=== PATIENT | female | born 1985 | race Caucasian/White ===

== ENCOUNTER 2016-11-04 12:19 | Emergency (ER) | payer MEDICAID ==
[2016-11-04 12:28] VITALS: BP 153/88
[2016-11-04] MEDS ORDERED: TETRACAINE HCL 0.5% OPH SOLN 2 ML OD ONE (14:29)
--- NOTE | 2016-11-04 14:56 | ER Document Report ---
HPI - HPI Patient complains to provider of: right eye redness Onset: Yesterday Onset/Duration: Gradual Quality of pain: Burning Pain Level: 4 Context: Patient complains of right eye redness and drainage that started yesterday. Patient states she woke up today with some matting to her eye. Patient denies any change in vision. Patient does state that she wears 2 week disposable contact lenses but has not worn them in over a week. Patient does report some light sensitivity. Patient denies sleeping in her contact lenses. Associated Symptoms: Other - Right eye redness Exacerbated by: Denies Relieved by: Denies Similar symptoms previously: No Recently seen / treated by doctor: No - ROS ROS below otherwise negative: Yes Systems Reviewed and Negative: Yes All other systems reviewed and negative - EENT EENT: REPORTS: Eye problems - NEURO Neurology: DENIES: Headache - GASTROINTESTINAL Gastrointestinal: DENIES: Patient vomiting - REPRODUCTIVE Reproductive: DENIES: : - DERM Skin Color: Normal Skin Problems: None Past Medical History - General Information source: Patient - Social History Smoking Status: Never Smoker Frequency of alcohol use: None Drug Abuse: None Occupation: none Lives with: Family Family History: Reviewed & Not Pertinent - Medical History Medical History: Negative Pulmonary Medical History: Reports: Hx Asthma Denies: Hx Tuberculosis Surgical Hx: Negative - Immunizations Hx Diphtheria, Pertussis, Tetanus Vaccination: No Vertical Provider Document - CONSTITUTIONAL Agree With Documented VS: Yes Exam Limitations: No Limitations General Appearance: WD/WN - HEENT HEENT: Atraumatic, Normocephalic Notes: right eye injected, no purulent drainage. Pt with 1 mm opacificated area concerning for corneal ulcer. No corneal abrasion, dendrite, or foreign body. EOMI, PERRL - NECK Neck: Normal Inspection - RESPIRATORY Respiratory: No Respiratory Distress O2 Sat by Pulse Oximetry: 97 - MUSCULOSKELETAL/EXTREMETIES Musculoskeletal/Extremeties: MAEW - NEURO Level of Consciousness: Awake, Alert, Appropriate Motor/Sensory: No Motor Deficit - DERM Integumentary: Warm, Dry, No Rash Course - Re-evaluation Re-evalutation: 11/04/16 14:[address] Vance who agrees to see pt in office tomorrow, recommends besivance 1 gtt q2 hour while awake and erthromycin ointment at bedtime. - Vital Signs Vital signs: Temp Pulse Resp BP Pulse Ox 97.7 F 73 24 H 153/88 H 97 11/04/16 12:27 11/04/16 12:27 11/04/16 12:27 11/04/16 12:27 11/04/16 12:27 Discharge - Discharge Clinical Impression: Cornea ulcer Qualifiers: Laterality: right Qualified Code(s): H16.001 - Unspecified corneal ulcer, right eye Condition: Stable Disposition: HOME, SELF-CARE Instructions: Eyedrop Use ([facility]), Antibiotic Therapy ([facility]), Corneal Ulceration ( [facility]) Additional Instructions: Return immediately for any new or worsening symptoms Followup with your primary care provider, call tomorrow to make a followup appointment Follow up with Dr. Vance tomorrow morning at 8:30, bring your glasses with you as well as her current insurance card. Call your primary care provider today to let them know that you need emergent ophthalmology follow-up, and will need a referral to Dr. Vance's office Do not wear ear contact lenses until cleared to do so by an operations tech. Prescriptions: Erythromycin Base [Erythromycin] 1 applic OP QHS #3.5 oint..gm. Besifloxacin HCl [Besivance 0.6% Oph Susp 5 ml] 1 drop OP ASDIR PRN #1 bottle PRN Reason: Forms: Elevated Blood Pressure Referrals: HARJIT VANCE MD [ACTIVE STAFF] - Follow up tomorrow
== END 2016-11-04 14:50 | disposition home or self-care (01) ==
LOC: ER 12:19
DX: H16.001 Unspecified corneal ulcer, right eye (principal); H57.8 Other specified disorders of eye and adnexa
CPT/HCPCS: 99283

== ENCOUNTER 2017-04-23 08:17 | Emergency (ER) | payer MEDICAID ==
--- NOTE | 2017-04-23 08:44 | ER Document Report ---
ED GI/ - General Mode of Arrival: Ambulatory Information source: Patient TRAVEL OUTSIDE OF THE [place] IN LAST 30 DAYS: No - HPI Patient complains to provider of: Dysuria. No: Vaginal discharge Associated symptoms: Other - see above - General Chief Complaint: Pain With Urination Stated Complaint: URINARY SYMPTOMS Time Seen by Provider: 04/23/17 08:31 Notes: Patient is a 31 year old female who presents to the ED with complaints of dysuria, burning and frequency with urination. Patient denies any vaginal discharge. Patient states that she has had bladder infections in the past. Patients last menstrual period was 04/07/2017. (MALENA NULL) - Related Data Allergies/Adverse Reactions: No Known Allergies Allergy (Verified 04/23/17 08:20) Past Medical History - General Information source: Patient - Social History Smoking Status: Never Smoker Chew tobacco use (# tins/day): No Smoking Education Provided: No Frequency of alcohol use: None Family History: Reviewed & Not Pertinent Patient has suicidal ideation: No Patient has homicidal ideation: No Pulmonary Medical History: Reports: Hx Asthma Renal/ Medical History: Denies: Hx Peritoneal Dialysis Surgical Hx: Negative - Immunizations Hx Diphtheria, Pertussis, Tetanus Vaccination: No Review of Systems - Review of Systems Constitutional: No symptoms reported EENT: No symptoms reported Cardiovascular: No symptoms reported Respiratory: No symptoms reported Gastrointestinal: No symptoms reported Genitourinary: See HPI, Burning, Dysuria, Frequency Female Genitourinary: No symptoms reported Musculoskeletal: No symptoms reported Skin: No symptoms reported Hematologic/Lymphatic: No symptoms reported Neurological/Psychological: No symptoms reported Physical Exam - General General appearance: Appears well, Alert In distress: None - HEENT Head: Normocephalic, Atraumatic Eyes: Normal Extraocular movements intact: Yes Pupils: PERRL - Respiratory Respiratory status: No respiratory distress - Abdominal Inspection: Obese Tenderness: Tender - superpubic - Back Back: Normal - Extremities General upper extremity: Normal inspection, Normal ROM General lower extremity: Normal inspection, Normal ROM - Neurological Neuro grossly intact: Yes - Psychological Associated symptoms: Normal affect, Normal mood - Skin Skin Temperature: Warm Skin Moisture: Dry Skin Color: Normal - Vital signs Vitals: Temp Pulse Resp BP Pulse Ox 98.2 F 86 16 154/104 H 96 04/23/17 08:23 04/23/17 08:23 04/23/17 08:23 04/23/17 08:23 04/23/17 08:23 - Vital Signs Vital signs: Temp Pulse Resp BP Pulse Ox 98.2 F 86 16 154/104 H 96 04/23/17 08:23 04/23/17 08:23 04/23/17 08:23 04/23/17 08:23 04/23/17 08:23 - Laboratory Laboratory results interpreted by me: 04/23/17 09:27 Urine Protein >=500 H Urine Blood MODERATE H Ur Leukocyte Esterase LARGE H Discharge - Discharge Clinical Impression: Hemorrhagic cystitis Condition: Stable Disposition: HOME, SELF-CARE Additional Instructions: Urinary Tract Infection Your evaluation indicates that you have a urinary tract infection. This is due to germs growing in the bladder. This is a common problem. This infection usually responds quickly to antibiotics. Your antibiotic should be taken exactly as prescribed. Drink plenty of fluids -- three to four quarts a day. Occasionally, a bladder anesthetic will be prescribed to help stop the feeling of urgency until the antibiotic has a chance to clear the infection. This may cause your urine to be dark orange. Certain urine infections require a culture. If the doctor obtained a culture, the results will be back in two days. You should call to see if a change in treatment is needed. A repeat urinalysis after you finish treatment is often recommended. The physician will let you know if further testing is required. Call the doctor if you develop fever, chills, flank pain, inability to urinate, or blood in the urine. TAKE THE MEDICATIONS PRESCRIBED. DRINK PLENTY OF FLUIDS. FOLLOW UP WITH A LOCAL MEDICAL DOCTOR IF NOT IMPROVING. RETURN TO THE EMERGENCY ROOM IF ANY NEW OR WORSENING SYMPTOMS. Prescriptions: Cephalexin Monohydrate [Keflex 500 mg Capsule] 500 mg PO QID #20 capsule Phenazopyridine HCl [Pyridium 200 mg Tablet] 200 mg PO TID #10 tablet Referrals: ELIZABETH CARRION MD [Primary Care Provider] - Follow up as needed Scribe Attestation: 04/23/17 10:07 I personally performed the services described in the documentation, reviewed and edited the documentation which was dictated to the scribe in my presence, and it accurately records my words and actions. (SUSANNE MOULTON) Scribe Documentation - Scribe Written by Jan:: jan Marr, 04/23/2017, 0843 acting as scribe for :: Jennifer
[2017-04-23 09:53] LABS: APPEARANCE,URINE CLOUDY; BILIRUBIN,URINE NEGATIVE (NEGATIVE); GLUCOSE, URINE NEGATIVE (NEGATIVE); KETONES,URINE NEGATIVE (NEGATIVE); LEUKOCYTE ESTERASE,URINE LARGE (NEGATIVE); NITRITE,URINE NEGATIVE (NEGATIVE); PROTEIN,URINE >=500 mg/dL (NEGATIVE); URINE SPECIFIC GRAVITY 1.022; UROBILINOGEN,URINE NEGATIVE mg/dL (<2.0)
[2017-04-23] MEDS ORDERED: CEPHALEXIN 500 MG CAPSULE PO ONE (10:05)
[2017-04-23] MEDS ORDERED: PHENAZOPYRIDINE HCL 200 MG TABLET PO ONE (10:05)
[2017-04-23 10:26] VITALS: BP 135/70
== END 2017-04-23 10:26 | disposition home or self-care (01) ==
LOC: ER 08:17
DX: N30.91 Cystitis, unspecified with hematuria (principal); R30.0 Dysuria; R35.0 Frequency of micturition
CPT/HCPCS: 99283; 81025; 81001; J3490

== ENCOUNTER 2017-08-17 10:58 | Emergency (ER) | payer MEDICAID ==
[2017-08-17 11:10] VITALS: BP 146/86
[2017-08-17] MEDS ORDERED: IBUPROFEN 800 MG TABLET PO ONE (11:51)
[2017-08-17] MEDS ORDERED: PREDNISONE 20 MG TABLET PO ONE (11:51)
--- NOTE | 2017-08-17 11:58 | ER Document Report ---
ED General - General Chief Complaint: Arm Pain Stated Complaint: ELBOW/JAW PAIN, HAND SWELLING Time Seen by Provider: 08/17/17 11:41 TRAVEL OUTSIDE OF THE [place] IN LAST 30 DAYS: No - HPI Patient complains to provider of: Right elbow pain left hand pain left jaw pain Notes: Patient coming in for the above-stated symptoms ongoing for the past month. Patient denies any trauma. Patient denies any past medical history denies taking medication patient she has been taking Tylenol for her pain control patient states the reason for coming in today because she wanted an opinion about what could possibly be going on. Denies any fevers chills nausea vomiting - Related Data Allergies/Adverse Reactions: No Known Allergies Allergy (Verified 08/17/17 10:58) Past Medical History - Social History Smoking Status: Never Smoker Frequency of alcohol use: None Drug Abuse: None Family History: Reviewed & Not Pertinent Patient has suicidal ideation: No Patient has homicidal ideation: No Pulmonary Medical History: Reports: Hx Asthma Renal/ Medical History: Denies: Hx Peritoneal Dialysis - Immunizations Hx Diphtheria, Pertussis, Tetanus Vaccination: No Review of Systems - Review of Systems Constitutional: No symptoms reported EENT: No symptoms reported Cardiovascular: No symptoms reported Respiratory: No symptoms reported Gastrointestinal: No symptoms reported Genitourinary: No symptoms reported Female Genitourinary: No symptoms reported Musculoskeletal: Other - Right elbow pain left hand pain left jaw pain Skin: No symptoms reported Hematologic/Lymphatic: No symptoms reported Neurological/Psychological: No symptoms reported Physical Exam - Vital signs Vitals: Temp Pulse Resp BP Pulse Ox 99.1 F 73 16 146/86 H 98 08/17/17 11:10 08/17/17 11:10 08/17/17 11:10 08/17/17 11:10 08/17/17 11:10 Interpretation: Normal - General General appearance: Appears well, Alert - HEENT Head: Normocephalic, Atraumatic Eyes: Normal Conjunctiva: Normal Cornea: Normal Extraocular movements intact: Yes Eyelashes: Normal Pupils: PERRL Ears: Normal External canal: Normal Tympanic membrane: Normal Sinus: Normal Nasal: Normal Mouth/Lips: Normal Mucous membranes: Normal Pharynx: Normal Neck: Normal - Respiratory Respiratory status: No respiratory distress Chest status: Nontender Breath sounds: Normal Chest palpation: Normal - Cardiovascular Rhythm: Regular Heart sounds: Normal auscultation Murmur: No - Abdominal Inspection: Normal Distension: No distension Bowel sounds: Normal Tenderness: Nontender Organomegaly: No organomegaly - Back Back: Normal, Nontender - Extremities General upper extremity: Nontender, Normal color, Normal ROM, Normal temperature. No: Normal inspection - Small swelling of the left MCP joint of the index finger no decreased range of motion no redness no signs of infected etiology. General lower extremity: Normal inspection, Nontender, Normal color, Normal ROM , Normal temperature, Normal weight bearing. No: Roopa's sign - Neurological Neuro grossly intact: Yes Cognition: Normal Orientation: AAOx4 Stitzer Coma Scale Eye Opening: Spontaneous Stitzer Coma Scale Verbal: Oriented Stitzer Coma Scale Motor: Obeys Commands Cayla Coma Scale Total: 15 Speech: Normal Motor strength normal: LUE, RUE, LLE, RLE Sensory: Normal - Psychological Associated symptoms: Normal affect, Normal mood - Skin Skin Temperature: Warm Skin Moisture: Dry Skin Color: Normal Course - Re-evaluation Re-evalutation: 08/17/17 15:43 Patient coming in for evaluation of right elbow pain left hand pain left jaw pain. Examination shows some slight swelling of the joints no swelling of the jaw patient has full range of motion of her jaw. No signs of dental infection or signs of ear infection. Unclear etiology jaw pain possibility of underlying connective tissue issue or rheumatoid arthritis for the elbow and for the hand. Explained to patient she will need follow-up with a family care physician for further etiologies - Vital Signs Vital signs: Temp Pulse Resp BP Pulse Ox 99.1 F 73 16 146/86 H 98 08/17/17 11:10 08/17/17 11:10 08/17/17 11:10 08/17/17 11:10 08/17/17 11:10 Discharge - Discharge Clinical Impression: joint pain and swelling Disposition: HOME, SELF-CARE Instructions: Arthralgia ([facility]) Additional Instructions: Examination today is consistent with more likely underlying soft tissue disease like rheumatoid arthritis. Specific testing will need to be performed by outpatient provider. Your examination that arrives reveals no critical etiology. We will start you on steroids and anti-inflammatory medication you can continue to take you continue Tylenol for pain control. I will give her information to our social workers to assist you in follow-up. Prescriptions: Naproxen [Naprosyn 250 mg Tablet] 250 mg PO DAILY PRN #30 tablet PRN Reason: Prednisone [Deltasone] 60 mg PO DAILY #24 tablet Forms: Return to Work Referrals: [facility] [Provider Group] - Follow up as needed
== END 2017-08-17 12:00 | disposition home or self-care (01) ==
LOC: ER 10:58
DX: M25.521 Pain in right elbow (principal); M79.89 Other specified soft tissue disorders; M79.642 Pain in left hand; R68.84 Jaw pain
CPT/HCPCS: 99283; J3490; J7512

== ENCOUNTER 2017-09-09 12:37 | Emergency (ER) | payer MEDICAID ==
--- NOTE | 2017-09-09 14:02 | ER Document Report ---
HPI - HPI Patient complains to provider of: Right elbow pain and left second MCP joint pain Onset: Other - Early September Onset/Duration: Gradual Quality of pain: Throbbing Pain Level: 3 Context: 31-year-old morbidly obese female is complaining of reoccurrence of her right elbow pain causing her to not be able to extend fully and also pain in her second left MCP joint. She was seen in the emergency department in August and told that she might have arthritis and needed to follow-up. She is a patient of [facility] and is waiting for them to call her back for referral. She is here today because it resolved after her August treatment with anti-inflammatories and prednisone and is now reoccurred. No history of gout. No fever. Associated Symptoms: None Exacerbated by: Denies Relieved by: Denies Similar symptoms previously: Yes Recently seen / treated by doctor: No - ROS ROS below otherwise negative: Yes Systems Reviewed and Negative: Yes All other systems reviewed and negative - REPRODUCTIVE Reproductive: DENIES: : - MUSCULOSKELETAL Musculoskeletal: REPORTS: Extremity pain Past Medical History - General Information source: Patient - Social History Smoking Status: Never Smoker Chew tobacco use (# tins/day): No Frequency of alcohol use: None Drug Abuse: None Lives with: Family Family History: Reviewed & Not Pertinent Patient has suicidal ideation: No Patient has homicidal ideation: No Pulmonary Medical History: Reports: Hx Asthma Renal/ Medical History: Denies: Hx Peritoneal Dialysis Surgical Hx: Negative - Immunizations Hx Diphtheria, Pertussis, Tetanus Vaccination: No Vertical Provider Document - CONSTITUTIONAL Agree With Documented VS: Yes Exam Limitations: No Limitations - INFECTION CONTROL TRAVEL OUTSIDE OF THE [place] IN LAST 30 DAYS: No - HEENT HEENT: Atraumatic, Normocephalic - NECK Neck: Supple Notes: tender top of left shoulder, above the mid clavicle - RESPIRATORY Respiratory: Breath Sounds Normal, No Respiratory Distress O2 Sat by Pulse Oximetry: 100 - CARDIOVASCULAR Cardiovascular: Regular Rate, Regular Rhythm - MUSCULOSKELETAL/EXTREMETIES Musculoskeletal/Extremeties: Tender. negative: FROM Notes: warm and tender over the lef 2nd MCP join, unable to extend right elbow fully, N /V intact, 2+ radial pulse. Pt denies injury - NEURO Level of Consciousness: Awake, Alert, Appropriate Motor/Sensory: No Motor Deficit, No Sensory Deficit - DERM Integumentary: Warm, Dry Course - Re-evaluation Re-evalutation: 09/09/17 16:15 X-ray shows effusion in the right elbow, the sed rate and CRP are elevated, the rheumatoid factor is negative, the MARQUEZ is pending. CBC is normal. Copies of lab work and x-ray are given to the patient. She understands she will need to follow-up with her track watchman. Naprosyn given for pain and inflammation. 09/09/17 16:15 - Vital Signs Vital signs: Temp Pulse Resp BP Pulse Ox 97.9 F 81 20 143/90 H 100 09/09/17 12:56 09/09/17 12:56 09/09/17 12:56 09/09/17 12:56 09/09/17 12:56 - Laboratory Result Diagrams: 09/09/17 14:20 Procedures - Immobilization Right Arm Time completed: 16:25 Pre-Proc Neuro Vasc Exam: Normal Immobilizer type: Sling Performed by: PCT Post-Proc Neuro Vasc Exam: Normal Alignment checked and good: Yes Discharge - Discharge Clinical Impression: Polyarticular joint pain inflammation Condition: Good Disposition: HOME, SELF-CARE Instructions: Temporary Sling ([facility]), Arthritis ([facility]), Anti-Inflammatory Medication ([facility]) Additional Instructions: see track watchman anti inflammatory naproxen twice a day with food see [facility] for your referral to er any concerns Prescriptions: Naproxen Sodium 550 mg PO BID #30 tablet Referrals: ELIZABETH CARRION MD [Primary Care Provider] - Follow up as needed MAKAYLA ABDALLA MD [ACTIVE STAFF] - Follow up tomorrow
[2017-09-09 14:38] LABS: ABSOLUTE BASOPHILS # (AUTO) 0.1 10^3/uL (0.0-0.2); ABSOLUTE EOSINOPHILS # (AUTO) 0.4 10^3/uL (0.0-0.6); ABSOLUTE MONOCYTES (AUTO) 0.6 10^3/uL (0.1-1.4); ABSOLUTE NEUT (AUTO) 7.1 10^3/uL (1.7-8.2); BASOPHILS % (AUTO) 0.7 % (0-2); EOSINOPHILS % (AUTO) 3.7 % (0-6); HEMATOCRIT 38.5 % (36.0-47.0); HEMOGLOBIN 12.8 g/dL (12.0-15.5); LYMPHOCYTES % (AUTO) 19.6 % (13-45); MEAN CORPUSCULAR HEMOGLOBIN 27.6 pg (27.0-33.4); MEAN CORPUSCULAR HGB CONC 33.3 g/dL (32.0-36.0); MEAN CORPUSCULAR VOLUME 83 fl (80-97); MONOCYTES % (AUTO) 5.5 % (3-13); PLATELET COUNT 267 10^3/uL (150-450); RED BLOOD COUNT 4.63 10^6/uL (3.72-5.28); RED CELL DISTRIBUTION WIDTH 14.4 % (11.5-14.0); SEGMENTED NEUTROPHILS % (AUTO) 70.5 % (42-78); TOTAL CELLS COUNTED % (AUTO) 100 %; WHITE BLOOD COUNT 10.1 10^3/uL (4.0-10.5)
[2017-09-09 15:09] LABS: URIC ACID 6.2 mg/dL (2.5-6.2)
[2017-09-09 15:15] LABS: ERYTHROCYTE SEDIMENTATION RATE 40 mm/hr (0-20)
--- NOTE | 2017-09-09 15:15 | RADIOLOGY REPORT (SQ) ---
EXAM DESCRIPTION: ELBOW RIGHT OVER 2 VIEWS COMPLETED DATE/TIME: 09/09/2017 2:52 pm REASON FOR STUDY: pain with extension right elbow COMPARISON: None. NUMBER OF VIEWS: Four views. TECHNIQUE: AP, lateral, and both oblique radiographic images acquired of the right elbow. LIMITATIONS: None. FINDINGS: MINERALIZATION: Normal. BONES: No acute fracture or dislocation. No worrisome bone lesions. JOINT: Small elbow joint effusion. SOFT TISSUES: No soft tissue swelling. No foreign body. OTHER: No other significant finding. IMPRESSION: Small elbow joint effusion, best shown on lateral film. No acute fracture or malalignment TECHNICAL DOCUMENTATION: JOB ID: [id number]- All Rights Reserved
[2017-09-09 16:27] VITALS: BP 135/84
[2017-09-11 13:39] LABS: ANTICHROMATIN AB <0.2 AI (0.0-0.9); CENTROMERE B AB <0.2 AI (0.0-0.9); JO-1 ANTIBODY (ANACOMP) <0.2 AI (0.0-0.9); RNP AB <0.2 AI (0.0-0.9); SCLERODERMA-70 ANTIBODIES <0.2 AI (0.0-0.9); SJOGREN'S ANTI-SS-B AB <0.2 AI (0.0-0.9); SJOGREN'S SS-A ANTIBODY <0.2 AI (0.0-0.9); SMITH AB ANA <0.2 AI (0.0-0.9)
[2017-09-11 14:53] LABS: DNA DOUBLE STRAND ANTIBODY ANA 1 IU/mL (0-9)
== END 2017-09-09 16:25 | disposition home or self-care (01) ==
LOC: ER 12:37
DX: M25.521 Pain in right elbow (principal); E66.01 Morbid (severe) obesity due to excess calories
CPT/HCPCS: 36415; 84550; 85025; 85652; 86140; 86225; 86235; 86430; 99284

== ENCOUNTER → 2017-10-27 | Outpatient (CLI) | payer MEDICAID ==
--- NOTE | 2017-10-27 16:40 | RADIOLOGY REPORT (SQ) ---
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 TECHNIQUE: Dynamic and static guevara scale and color images acquired of the right arm venous system. S elected spectral images acquired with additional compression and augmentation maneuvers. The contrala teral subclavian vein and internal jugular vein were also imaged. Images stored on PACS. LIMITATIONS: None. FINDINGS: INTERNAL JUGULAR VEIN: Normal phasicity, compression, augmentation. No visualized echogeni c material on guevara scale. No defects on color images. Comparison opposite side normal. SUBCLAVIAN VEIN: Normal compression, augmentation. No visualized echogenic material on guevara scale. No defects on color images. AXILLARY VEIN: Normal compression, augmentation. No visualized echogenic material on guevara scale. No d efects on color images. BRACHIAL VEIN: Normal compression, augmentation. No visualized echogenic material on guevara scale. No d efects on color images. BASILIC VEIN: Normal compression, augmentation. No visualized echogenic material on guevara scale. No de fects on color images. CEPHALIC VEIN: Normal compression, augmentation. No visualized echogenic material on guevara scale. No d efects on color images. OTHER: No other significant finding. CONTRALATERAL SUBCLAVIAN VEIN AND INTERNAL JUGULAR VEIN: Normal phasicity, compression and augmentation. No visualized echogenic material on guevara scale. No de fects on color images. IMPRESSION: NO EVIDENCE DVT OR SVT IN THE RIGHT ARM. TECHNICAL DOCUMENTATION: JOB ID: [id number] [employer]- All Rights Reserved Reading location - IP/workstation name: [email or web address]
== END ==
LOC: SP 12:58
PROVIDERS: ATTEND Physician Assistant
DX: D69.2 Other nonthrombocytopenic purpura (principal)
CPT/HCPCS: 93971

== ENCOUNTER 2018-04-04 14:27 | Emergency (ER) | payer MEDICAID ==
--- NOTE | 2018-04-04 14:42 | ER Document Report ---
ED Medical Screen (RME) - General Chief Complaint: Vag Bleeding, +preg <12wks Stated Complaint: VAGINAL BLEEDING Time Seen by Provider: 04/04/18 14:38 Notes: 32-year-old female, g4 para 3 individual diagnosed with this week by her primary care doctor. HCG was positive in the office. Blood work was ordered but she does not know the results. Began having spotting and bleeding and cramping this morning. Did not pass out. No shortness of breath. No other major symptoms at this time. Patient is tearful and is afraid of a miscarriage. I have greeted and performed a rapid initial assessment of this patient. A comprehensive ED assessment and evaluation of the patient, analysis of test results and completion of the medical decision making process will be conducted by additional ED providers. TRAVEL OUTSIDE OF THE [place] IN LAST 30 DAYS: No - Related Data Allergies/Adverse Reactions: No Known Allergies Allergy (Verified 04/04/18 14:27) Past Medical History Pulmonary Medical History: Reports: Hx Asthma Renal/ Medical History: Denies: Hx Peritoneal Dialysis - Immunizations Hx Diphtheria, Pertussis, Tetanus Vaccination: No Physical Exam - Vital signs Vitals: Temp Pulse Resp BP Pulse Ox 100.0 F 111 H 22 H 144/92 H 96 04/04/18 14:31 04/04/18 14:31 04/04/18 14:31 04/04/18 14:31 04/04/18 14:31 Course - Vital Signs Vital signs: Temp Pulse Resp BP Pulse Ox 100.0 F 111 H 22 H 144/92 H 96 04/04/18 14:31 04/04/18 14:31 04/04/18 14:31 04/04/18 14:31 04/04/18 14:31 Doctor's Discharge - Discharge Referrals: JO RODRIGUEZ PA-C [Primary Care Provider] - Follow up as needed
[2018-04-04 15:15] LABS: ABSOLUTE EOSINOPHILS # (AUTO) 0.1 10^3/uL (0.0-0.6); ABSOLUTE LYMPHOCYTES (AUTO) 1.2 10^3/uL (0.5-4.7); ABSOLUTE MONOCYTES (AUTO) 0.3 10^3/uL (0.1-1.4); ABSOLUTE NEUT (AUTO) 9.3 10^3/uL (1.7-8.2); BASOPHILS % (AUTO) 0.4 % (0-2); EOSINOPHILS % (AUTO) 0.6 % (0-6); HEMATOCRIT 37.6 % (36.0-47.0); HEMOGLOBIN 12.5 g/dL (12.0-15.5); LYMPHOCYTES % (AUTO) 10.8 % (13-45); MEAN CORPUSCULAR HEMOGLOBIN 28.4 pg (27.0-33.4); MEAN CORPUSCULAR HGB CONC 33.3 g/dL (32.0-36.0); MEAN CORPUSCULAR VOLUME 85 fl (80-97); MONOCYTES % (AUTO) 2.9 % (3-13); PLATELET COUNT 352 10^3/uL (150-450); RED BLOOD COUNT 4.41 10^6/uL (3.72-5.28); RED CELL DISTRIBUTION WIDTH 18.2 % (11.5-14.0); SEGMENTED NEUTROPHILS % (AUTO) 85.3 % (42-78); TOTAL CELLS COUNTED % (AUTO) 100 %; WHITE BLOOD COUNT 10.9 10^3/uL (4.0-10.5)
--- NOTE | 2018-04-04 15:32 | ER Document Report ---
ED General - General Chief Complaint: Vag Bleeding, +preg <12wks Stated Complaint: VAGINAL BLEEDING Time Seen by Provider: 04/04/18 14:38 TRAVEL OUTSIDE OF THE [place] IN LAST 30 DAYS: No - HPI Notes: Patient is a 32-year-old female , + urine preg test 3 days ago (approx 4 wks), with a history of rheumatoid arthritis who presents to the ED complaining of vaginal bleeding that started a couple hours ago. Patient states that she found out she was 3 days ago. Patient states that she started having some cramping and bleeding today. She is still eating and drinking without difficulties. She is urinating normally and having normal bowel movements. Denies any drug allergies. Denies any smoking, IV drug use, or alcohol intake. She has not had any previous miscarriages or abortions otherwise. She has not had any other vaginal odor or discharge. Denies any headache, fever, URI, sore throat, chest pain, palpitations, syncope, cough, shortness of breath, wheeze, dyspnea, nausea/vomiting/diarrhea, urinary retention, dysuria, hematuria , back pain, loss of control of bowel or bladder, numbness/tingling, muscle paralysis/weakness, or rash. - Related Data Allergies/Adverse Reactions: No Known Allergies Allergy (Verified 04/04/18 14:27) Past Medical History - General Last Menstrual Period: 02/13/2018 - Social History Smoking Status: Never Smoker Frequency of alcohol use: None Drug Abuse: None Family History: Reviewed & Not Pertinent Patient has suicidal ideation: No Patient has homicidal ideation: No Pulmonary Medical History: Reports: Hx Asthma Renal/ Medical History: Denies: Hx Peritoneal Dialysis - Immunizations Hx Diphtheria, Pertussis, Tetanus Vaccination: No Review of Systems - Review of Systems -: Yes All other systems reviewed and negative Physical Exam - Vital signs Vitals: Temp Pulse Resp BP Pulse Ox 100.0 F 111 H 22 H 144/92 H 96 04/04/18 14:31 04/04/18 14:31 04/04/18 14:31 04/04/18 14:31 04/04/18 14:31 - Notes Notes: PHYSICAL EXAMINATION: Vitals: HR 90 during exam. GENERAL: Well-appearing, well-nourished and in no acute distress. Morbid obesity. LUNGS: Breath sounds clear to auscultation bilaterally and equal. No wheezes rales or rhonchi. HEART: Regular rate and rhythm without murmurs, rubs, gallops. ABDOMEN: Soft, nontender, nondistended abdomen. No guarding, no rebound. Normal bowel sounds present. No CVA tenderness bilaterally. : deferred Musculoskeletal: FROM to passive/active. Strength 5+/5. Extremities: No cyanosis, clubbing, or edema b/l. Peripheral pulses 2+. Capillary refill less than 3 seconds. NEUROLOGICAL: Normal speech, normal gait. PSYCH: crying (emotional due to bleeding), normal affect. SKIN: Warm, Dry, normal turgor, no rashes or lesions noted. Course - Re-evaluation Re-evalutation: 04/04/18 15:33 Patient is an afebrile, well-hydrated, 32-year-old female who presents to the ED with vaginal bleeding and negative test. Vitals are acceptable without any significant tachycardia, tachypnea, or hypoxia. PE is otherwise unremarkable. CBC, CMP, lipase unremarkable for acute pathology. HCG negative. TVUS unremarkable for acute pathology. Pt's abd is soft and non- tender. Patient is nontoxic-appearing is tolerating p.o. without any difficulties. No other labs or imaging warranted at this time based on H&P. Low suspicion/risk for acute appendicitis, bowel obstruction, acute cholecystitis, acute cholangitis, perforated diverticulitis, incarcerated hernia , pancreatitis, perforated ulcer, peritonitis, sepsis, pelvic inflammatory disease, ectopic , tubo-ovarian abscess, ovarian torsion, or other systemic emergent condition at this time. Patient is aware that her condition can change from initial presentation and she needs to monitor symptoms closely and seek medical attention if any acute changes. Conservative measures otherwise for symptoms. Recheck with your PCM/OBGYN in 3-5 days. Return to the ED with any worsening/concerning symptoms otherwise as reviewed in discharge. Patient is in agreement. - Vital Signs Vital signs: Temp Pulse Resp BP Pulse Ox 100.0 F 111 H 22 H 144/92 H 96 04/04/18 14:31 04/04/18 14:31 04/04/18 14:31 04/04/18 14:31 04/04/18 14:31 - Laboratory Result Diagrams: 04/04/18 14:57 04/04/18 14:57 Laboratory results interpreted by me: 04/04/18 04/04/18 14:57 14:57 WBC 10.9 H RDW 18.2 H Seg Neutrophils % 85.3 H Lymphocytes % 10.8 L Monocytes % 2.9 L Absolute Neutrophils 9.3 H Glucose 114 H AST 13 L Discharge - Discharge Clinical Impression: Vaginal bleeding Condition: Stable Disposition: HOME, SELF-CARE Additional Instructions: Maintain fluid intake Proper hygenic technique Keep the skin clean Tylenol as needed Return immediately if symptoms worsen F/u with your PCM/OBGYN in 3-5 days for a recheck Return to the ED with any development of PITT/fever, trouble with vision, eye redness, worsening pain, urethral discharge, urinary retention, blood in the urine, flank pain, abdominal pain, n/v, Chest Pain, shortness of breath, joint pains, trouble breathing, or any other worsening/concerning symptoms as needed otherwise. Forms: Elevated Blood Pressure Referrals: [facility] [Provider Group] - Follow up in 3-5 days JO RODRIGUEZ PA-C [Primary Care Provider] - Follow up in 3-5 days
[2018-04-04 15:44] LABS: ALANINE AMINOTRANSFERASE 20 U/L (9-52); ALBUMIN 3.8 g/dL (3.5-5.0); ALKALINE PHOSPHATASE 48 U/L (38-126); ANION GAP 12 (5-19); ASPARTATE AMINO TRANSFERASE 13 U/L (14-36); BILIRUBIN,TOTAL 0.5 mg/dL (0.2-1.3); BLOOD UREA NITROGEN 9 mg/dL (7-20); CALCIUM 9.3 mg/dL (8.4-10.2); CARBON DIOXIDE 23 mmol/L (22-30); CHLORIDE 107 mmol/L (98-107); GLUCOSE 114 mg/dL (75-110); POTASSIUM 4.6 mmol/L (3.6-5.0); SODIUM 142.1 mmol/L (137-145); TOTAL PROTEIN 7.2 g/dL (6.3-8.2)
--- NOTE | 2018-04-04 15:55 | RADIOLOGY REPORT (SQ) ---
EXAM DESCRIPTION: U/S OB TRANSVAGINAL W/O DOP COMPLETED DATE/TIME: 04/04/2018 3:23 pm REASON FOR STUDY: + preg andbleeding COMPARISON: None. TECHNIQUE: Transvaginal static and realtime grayscale images acquired of the pelvis. Additional coy cted spectral and color Doppler images recorded. All images stored on PACs. CLINICAL DATES: 7 weeks 1 day. LIMITATIONS: None. FINDINGS: UTERUS: The uterus measures 10.9 x 5.0 x 4.5 cm. CERVICAL LENGTH: 3.2. Small amount of fluid endocervical canal there Closed. RIGHT ADNEXA: Right ovary nonvisualized. LEFT ADNEXA: Left ovary nonvisualized. FREE FLUID: None seen. IMPRESSION: No IUP visualized. Clinical follow-up with serial beta HCG and ultrasound could be rep eated and later interval if indicated. Trimester of : First - 0 to 13 weeks. TECHNICAL DOCUMENTATION: JOB ID: [id number] 2010 [employer]- All Rights Reserved rev-01/16 Reading location - IP/workstation name: [email or web address]
[2018-04-04 16:19] VITALS: BP 138/90
== END 2018-04-04 16:19 | disposition home or self-care (01) ==
LOC: ER 14:27
DX: N93.9 Abnormal uterine and vaginal bleeding, unspecified (principal); R25.2 Cramp and spasm; J45.909 Unspecified asthma, uncomplicated; E66.01 Morbid (severe) obesity due to excess calories; Z68.45 Body mass index [BMI] 70 or greater, adult
CPT/HCPCS: 36415; 76817; 80053; 84702; 85025; 86900; 86901; 99284

== ENCOUNTER 2018-12-03 10:35 | Day surgery (SDC) | payer MEDICAID ==
[2018-12-03] MEDS ORDERED: ACETAMINOPHEN 0 MG/0 ML RTUPB IV ONE (11:27)
[2018-12-03] MEDS ORDERED: MIDAZOLAM 2 MG/2 ML INJ ONE ×2 (11:27→12:08)
[2018-12-03] MEDS ORDERED: PROPOFOL INJ 200 MG/20 ML VIAL IV ONE ×3 (11:27→13:05)
[2018-12-03] MEDS ORDERED: FENTANYL CITRATE INJ/PF 100 MCG/2 ML AMPUL ONE ×2 (11:27→12:08)
[2018-12-03] MEDS ORDERED: LIDOCAINE 2%/EPINEPHRINE INJ 1.7 ML CARTRIDGE ONE (11:51)
[2018-12-03] MEDS ORDERED: BUPIVACAINE HCL 0.5%/EPI 1:200000 INJ 1.8 ML CARTRIDGE ONE (11:51)
[2018-12-03] MEDS ORDERED: LIDOCAINE 2% INJ-PF (100 MG/5 ML) SYRINGE ONE (12:08)
[2018-12-03] MEDS ORDERED: DIPHENHYDRAMINE HCL 50 MG/ML VIAL IV PRN (12:44)
[2018-12-03] MEDS ORDERED: PROMETHAZINE HCL INJ 25 MG/1 ML VIAL IV PRN ×2 (12:44)
[2018-12-03] MEDS ORDERED: FENTANYL CITRATE INJ/PF 100 MCG/2 ML AMPUL IV PRN ×3 (12:44)
--- NOTE | 2018-12-03 13:01 | Operative Report ---
Operative Report DATE OF SURGERY: 12/03/18 PREOPERATIVE DIAGNOSIS: Malpositioned and carious wisdom teeth numbers 1 and 16 POSTOPERATIVE DIAGNOSIS: Same OPERATION: Surgical removal of teeth numbers 1 and 16 SURGEON: PATRICK SANTA ANESTHESIA: GA TISSUE REMOVED OR ALTERED: Teeth which were discarded COMPLICATIONS: None ESTIMATED BLOOD LOSS: Minimal INTRAOPERATIVE FINDINGS: Malpositioned and carious wisdom teeth numbers 1 and 16 PROCEDURE: The patient was brought into operating room #4 and placed on the operating room table in supine position. General anesthesia was induced via a peripheral IV and continued utilizing endotracheal intubation. The patient was then prepped and draped in the usual fashion for an intraoral procedure. A total of 2 carpules of 2% Lidocaine with 1:100K Epi were delivered to the planned surgical sites via infiltration. The oral cavity and oropharynx were suctioned and a moistened oropharyngeal throat pack was placed. Full thickness mucoperisteal flaps were elevated. These were via envelope incisions. Ostectomy was completed as needed. No sinus exposure noted. All sites debrided and irrigated. The oral cavity was suctioned and found to be free of debris. The throat pack was removed. The oropharynx was suctioned. Gauze packs were placed bilaterally to aid in continued hemastasis. The patient was awakened from anesthesia, extubated in the operating room and taken to recovery room and spontaneous breathing fashion.
[2018-12-03] MEDS ORDERED: OXYCODONE-ACETAMINOPHEN 5-325 MG TABLET PO PRN (13:14)
[2018-12-03 14:19] VITALS: BP 133/85
[2018-12-03] MEDS ORDERED: SUCCINYLCHOLINE CHLORIDE INJ 200 MG/10 ML VIAL ONE (21:20)
== END 2018-12-03 14:15 | disposition home or self-care (01) ==
LOC: OROUT 10:35
PROVIDERS: ATTEND Dentist Oral and Maxillofacial Surgery
DX: K02.63 Dental caries on smooth surface penetrating into pulp (principal); M06.9 Rheumatoid arthritis, unspecified; E66.01 Morbid (severe) obesity due to excess calories; Z68.45 Body mass index [BMI] 70 or greater, adult; Z79.899 Other long term (current) drug therapy
CPT/HCPCS: 41899; 81025; J2250; J3490; J3010; J2001; J0330; J2704; 170; J0131

== ENCOUNTER 2019-09-10 18:05 | Emergency (ER) | payer MEDICAID ==
[2019-09-10] MEDS ORDERED: DEXAMETHASONE SOD PHOS INJ 10 MG/1 ML VIAL IM ONE (18:49)
--- NOTE | 2019-09-10 18:50 | ER Document Report ---
HPI - HPI Time Seen by Provider: 09/10/19 18:46 Pain Level: 2 Notes: Patient is a 33-year-old female who presents to the ED complaining of nasal congestion/discharge, dry nonproductive cough, fever, body ache, s/t 1-2 days. Patient states that she is still eating and drinking without difficulties, but does have a decreased p.o. intake. She is still urinating normally having normal bowel movements. Patient has been using some [id number]-pja-[id number] meds for symptoms. She denies any significant past medical history including cardiopulmonary history and immunocompromised conditions. Denies any current headache, neck pain, chest pain, palpitations, syncope, shortness of breath, wheeze, dyspnea, abdominal pain, nausea/vomiting/diarrhea, urinary retention, dysuria, hematuria, or rash. - ROS Systems Reviewed and Negative: Yes All other systems reviewed and negative - EENT EENT: REPORTS: Sore Throat, Ear Pain. DENIES: Eye problems - RESPIRATORY Respiratory: REPORTS: Coughing - REPRODUCTIVE Reproductive: DENIES: : Past Medical History - Social History Smoking Status: Never Smoker Family History: Reviewed & Not Pertinent Patient has suicidal ideation: No Patient has homicidal ideation: No - Past Medical History Cardiac Medical History: Denies: Hx Coronary Artery Disease, Hx Heart Attack, Hx Hypertension Pulmonary Medical History: Denies: Hx Asthma, Hx Bronchitis, Hx COPD, Hx Pneumonia Neurological Medical History: Denies: Hx Cerebrovascular Accident, Hx Seizures Renal/ Medical History: Denies: Hx Peritoneal Dialysis Musculoskeletal Medical History: Reports Hx Arthritis - Immunizations Hx Diphtheria, Pertussis, Tetanus Vaccination: Yes Vertical Provider Document - CONSTITUTIONAL Agree With Documented VS: Yes Notes: PHYSICAL EXAMINATION: GENERAL: Well-appearing, well-nourished and in no acute distress. A&Ox4. Answers questions appropriately. Moves comfortably w/o notable distress HEAD: Atraumatic, normocephalic. EYES: Pupils equal round and reactive to light, extraocular movements intact, sclera anicteric, conjunctiva are normal. ENT: Nares patent and with clear discharge. oropharynx mild erythema without exudates. 3+ tonsilar hypertrophy with mild erythema no exudate. No palatine shift. Uvula midline. No tongue protrusion. No drooling, hoarseness, or airway compromise. Moist mucous membranes. No sinus tenderness. NECK: Normal range of motion, supple without lymphadenopathy. No rigidity/meningismus. LUNGS: Breath sounds clear to auscultation bilaterally and equal. No wheezes rales or rhonchi. No retractions HEART: Regular rate and rhythm without murmurs, rubs, gallops. ABDOMEN: Soft, nontender, nondistended abdomen. No guarding, no rebound. Normal bowel sounds present. No CVA tenderness bilaterally. NEUROLOGICAL: Normal speech, normal gait. PSYCH: Normal mood, normal affect. SKIN: Warm, Dry, normal turgor, no rashes or lesions noted. - INFECTION CONTROL TRAVEL OUTSIDE OF THE [place] IN LAST 30 DAYS: No Course - Re-evaluation Re-evalutation: 09/10/19 19:54 Patient is an afebrile, well-hydrated, 33-year-old female who presents to the ED with acute URI, suspect viral/influenza. Vitals are acceptable. PE is otherwise unremarkable. Rapid strep negative with culture pending. No further labs or imaging warranted at this time based on H&P. Pt does have a h/o asthma. Patient's lungs are clear to auscultation bilaterally without tachycardia, hypoxia, or tachypnea. Patient is tolerating p.o. without any difficulties. Thoroughly reviewed the risks, benefits, potential side effects, estimated cost without insurance with patient. After thorough review, patient requested Tamiflu at this time. Low suspicion for any meningitis, sepsis, peritonsillar/pharyngeal abscess, respiratory compromise, severe dehydration, or other emergent systemic condition at this time. Patient is aware this condition can change from initial presentation and she needs to monitor symptoms closely. Conservative measures otherwise for symptoms. Recheck with your PCM in 3-5 days. Return to the ED with any worsening/concerning symptoms otherwise as reviewed in discharge. Patient is in agreement. - Vital Signs Vital signs: Temp Pulse Resp BP Pulse Ox 97.3 F 106 H 18 154/99 H 100 09/10/19 18:39 09/10/19 18:39 09/10/19 18:39 09/10/19 18:39 09/10/19 18:39 Discharge - Discharge Clinical Impression: Acute URI Condition: Stable Disposition: HOME, SELF-CARE Instructions: Upper Respiratory Illness ([facility]) Additional Instructions: Maintain adequate fluid intake tylenol/ibuprofen as needed alternating every 3 hours for fever/body ache over the counter cold medication as needed for symptoms Humidified air may help Wash your hands regularly Wear a mask when coughing F/u: with your PCM in 3-5 days for a recheck Return to the ED with any fever, altered mental status/behavior, chest pain, palpitations, syncope, headache, neck pain/stiffness, shortness of breath, chest pains, wheezing, drooling, trouble swallowing/breathing, abdominal pain, n/v/d, rash, or worsening/concerning symptoms otherwise. Prescriptions: Oseltamivir Phosphate [Tamiflu 75 mg Capsule] 75 mg PO BID #10 capsule Forms: Elevated Blood Pressure Referrals: JO RODRIGUEZ PA-C [Primary Care Provider] - Follow up as needed
[2019-09-10 20:11] VITALS: BP 139/50
== END 2019-09-10 20:19 | disposition home or self-care (01) ==
LOC: ER 18:05
DX: J06.9 Acute upper respiratory infection, unspecified (principal); R09.81 Nasal congestion; R05 Cough; R50.9 Fever, unspecified; J02.9 Acute pharyngitis, unspecified; H92.09 Otalgia, unspecified ear; J35.1 Hypertrophy of tonsils
CPT/HCPCS: 99283; 96372; 87070; 87880; 87077; J1100

== ENCOUNTER 2020-03-14 13:43 | Emergency (ER) | payer MEDICAID ==
--- NOTE | 2020-03-14 14:35 | ER Document Report ---
HPI - HPI Time Seen by Provider: 03/14/20 14:07 Pain Level: 5 Notes: 34-year-old female with a history of RA presents emergency room for complaints of left hip pain that started last night, and states this morning she started with some numbness and tingling going down her legs. Denies any trauma. Has not tried any thing [id number] for the pain. Worse with walking, better at rest. Has not tried any heat or icing. - REPRODUCTIVE Reproductive: DENIES: : Past Medical History - General Information source: Patient - Social History Smoking Status: Never Smoker Frequency of alcohol use: None Drug Abuse: None Family History: Reviewed & Not Pertinent - Past Medical History Cardiac Medical History: Denies: Hx Coronary Artery Disease, Hx Heart Attack, Hx Hypertension Pulmonary Medical History: Denies: Hx Asthma, Hx Bronchitis, Hx COPD, Hx Pneumonia Neurological Medical History: Denies: Hx Cerebrovascular Accident, Hx Seizures Renal/ Medical History: Denies: Hx Peritoneal Dialysis Musculoskeletal Medical History: Reports Hx Arthritis - rheumatoid - Immunizations Hx Diphtheria, Pertussis, Tetanus Vaccination: Yes Vertical Provider Document - CONSTITUTIONAL Agree With Documented VS: Yes Exam Limitations: No Limitations General Appearance: WD/WN Notes: MEDICATIONS: I agree with the patient medications as charted by the RN. ALLERGIES: I agree with the allergies as charted by the RN. PAST MEDICAL HISTORY/PAST SURGICAL HISTORY: Reviewed and agree as charted by RN. SOCIAL HISTORY: Reviewed and agree as charted by RN. FAMILY HISTORY: No significant familial comorbid conditions directly related to patient complaint PHYSICAL EXAMINATION: GENERAL: Well-appearing, morbidly obese and in no acute distress. HEAD: Atraumatic, normocephalic. EYES: Pupils equal round and reactive to light, extraocular movements intact, conjunctiva are normal. ENT: Nares patent, oropharynx clear without exudates. Moist mucous membranes. NECK: Normal range of motion, supple without lymphadenopathy LUNGS: Breath sounds clear to auscultation bilaterally and equal. No wheezes rales or rhonchi. HEART: Regular rate and rhythm without murmurs ABDOMEN: Soft, nontender, nondistended abdomen. No guarding, no rebound. No masses appreciated. Female : deferred Musculoskeletal: Normal range of motion, no pitting or edema. No cyanosis. left hip noted pain with abduction and extension of lumbar back at 10 degrees. dtr + 2 bilaterally and equally in BLE. full motor and sensory function. normal gait. cap refill < 3 seconds. distal pulses + 2 in BLE. lower back examination wnl. No erythema, warmth to touch, deformity, crepitus or obvious asymmetry of the affected leg compared to other of hips equally. NEUROLOGICAL: Cranial nerves grossly intact. Normal speech, normal gait. Normal sensory, motor exams PSYCH: Normal mood, normal affect. SKIN: Warm, Dry, normal turgor, no rashes or lesions noted. Dictation was performed using [employer] voice recognition software - INFECTION CONTROL TRAVEL OUTSIDE OF THE [place] IN LAST 30 DAYS: No Course - Re-evaluation Re-evalutation: 03/14/20 16:16 Afebrile vital stable no distress. Nurses notes reviewed. X-ray of lumbar spine and hip x-ray were negative for acute fracture dislocation or foreign body. Discussed with patient that she needs to take anti-inflammatory and Flexeril as needed as is likely a strain. Advised apply heat 20 minutes on 20 minutes off several times a day. Follow-up with occupational health specialist and primary care provider within 24 to 48 hours for reevaluation. Advised return to the emergency room for any red flag symptoms such as bowel or bladder incontinence, saddle anesthesia. After performing a Medical Screening Examination, I estimate there is LOW risk for EXPANDING OR RUPTURED ABDOMINAL AORTIC ANEURYSM, CAUDA EQUINA SYNDROME, EPIDURAL MASS ABSCESS OR LESION(S), OSTEOMYELITIS,PERSONAL HISTORY OF CANCER, IMMUNOSUPPERSSSION, HISTORY OF IV DRUG USE, FRACTURE, CORD COMPERSSION, CANCER, RETROPERITONEAL BLEED, SPINAL EPIDURAL HEMATOMA, or HERNIATED DISK CAUSING SEVERE SPINAL STENOSIS, thus I consider the discharge disposition reasonable. I have reevaluated this patient multiple times and no significant life threatening changes are noted. The patient and I have discussed the diagnosis and risks, and we agree with discharging home and close follow-up. We also discussed returning to the Emergency Department immediately if new or worsening symptoms occur with the understanding that symptoms and presentations can change. We have discussed the symptoms which are most concerning (e.g., saddle anesthesia, urinary or bowel incontinence or retention, changing or worsening pain) that necessitate immediate return. - Vital Signs Vital signs: Temp Pulse Resp BP Pulse Ox 98.6 F 77 16 132/80 H 100 03/14/20 13:50 03/14/20 13:50 03/14/20 13:50 03/14/20 13:50 03/14/20 13:50 Discharge - Discharge Clinical Impression: Left hip pain Condition: Stable Disposition: HOME, SELF-CARE Instructions: Sprain ([facility]) Additional Instructions: Your x-rays were normal today. Please apply heat 20 minutes on 20 minutes off several times a day. Please use muscle relaxer as directed, do not drive a car, operate heavy machinery or drink alcohol while taking this medication because sedation or impairment of cognitive function. Take naproxen as needed for pain. Follow-up with occupational health specialist and primary care provider in the next 24 to 48 hours. Return immediately for any new or worsening symptoms. Follow up with primary care provider, call tomorrow to make followup appointment. Prescriptions: Cyclobenzaprine HCl [Flexeril 10 mg Tablet] 10 mg PO TIDP PRN #9 tab PRN Reason: Naproxen 500 mg PO BID #10 tablet Referrals: SILVIA RIVERO MD [ACTIVE STAFF] - Follow up as needed REGGIE DUGAN DO [NO LOCAL MD] - Follow up as needed
--- NOTE | 2020-03-14 15:07 | RADIOLOGY REPORT (SQ) ---
EXAM DESCRIPTION: L SPINE WHOLE IMAGES COMPLETED DATE/TIME: 03/14/2020 2:58 pm REASON FOR STUDY: left hip pain, lbp pain COMPARISON: None. NUMBER OF VIEWS: Five views including obliques. TECHNIQUE: AP, lateral, oblique, and sacral radiographic images acquired of the lumbar spine. LIMITATIONS: None. FINDINGS: MINERALIZATION: Normal. SEGMENTATION: Normal. No transitional anatomy. ALIGNMENT: Normal. VERTEBRAE: Maintained height. No fracture or worrisome bone lesion. DISCS: Preserved height. No significant osteophytes or end plate irregularity. POSTERIOR ELEMENTS: Pedicles and facets are intact. No pars defect or posterior arch defects. HARDWARE: None in the spine. PARASPINAL SOFT TISSUES: Normal. PELVIS: Intact as visualized. No fractures or worrisome bone lesions. SI joints intact. OTHER: No other significant finding. IMPRESSION: 1. NORMAL 5 VIEW LUMBAR SPINE. TECHNICAL DOCUMENTATION: JOB ID: [id number] 2010 [employer]- All Rights Reserved Reading location - IP/workstation name: [email or web address]
--- NOTE | 2020-03-14 15:08 | RADIOLOGY REPORT (SQ) ---
EXAM DESCRIPTION: HIP LEFT AP/LATERAL IMAGES COMPLETED DATE/TIME: 03/14/2020 2:58 pm REASON FOR STUDY: left hip pain x 1d, no trauma COMPARISON: None. NUMBER OF VIEWS: Two views. TECHNIQUE: AP pelvis and additional frog-leg view of the left hip. LIMITATIONS: None. FINDINGS: MINERALIZATION: Normal. LEFT HIP: No fracture or dislocation. No worrisome bone lesions. RIGHT HIP: No fracture or dislocation. No worrisome bone lesions. PUBIS AND ISCHIUM: No fracture. PELVIS: No fracture. SACRUM: No fracture or dislocation. No worrisome bone lesions. LOWER LUMBAR SPINE: No fracture or dislocation. No worrisome bone lesions. No significant disc disea se. SOFT TISSUES: No findings. OTHER: No other significant finding. IMPRESSION: 1. NEGATIVE STUDY OF THE LEFT HIP AND PELVIS. TECHNICAL DOCUMENTATION: JOB ID: [id number] 2010 [employer]- All Rights Reserved Reading location - IP/workstation name: [email or web address]
[2020-03-14 16:26] VITALS: BP 113/64
== END 2020-03-14 16:26 | disposition home or self-care (01) ==
LOC: ER 13:43
DX: M06.9 Rheumatoid arthritis, unspecified (principal); M25.552 Pain in left hip; Z79.899 Other long term (current) drug therapy
CPT/HCPCS: 72110; 81025; 99283

== ENCOUNTER → 2020-09-05 | Outpatient (CLI) | payer MEDICAID ==
[2020-09-05 13:06] LABS: ABSOLUTE EOSINOPHILS # (AUTO) 0.3 10^3/uL (0.0-0.6); ABSOLUTE LYMPHOCYTES (AUTO) 1.7 10^3/uL (0.5-4.7); ABSOLUTE MONOCYTES (AUTO) 0.2 10^3/uL (0.1-1.4); ABSOLUTE NEUT (AUTO) 4.3 10^3/uL (1.7-8.2); BASOPHILS % (AUTO) 0.2 % (0-2); EOSINOPHILS % (AUTO) 4.6 % (0-6); HEMATOCRIT 33.3 % (36.0-47.0); HEMOGLOBIN 11.4 g/dL (12.0-15.5); LYMPHOCYTES % (AUTO) 25.8 % (13-45); MEAN CORPUSCULAR HEMOGLOBIN 27.9 pg (27.0-33.4); MEAN CORPUSCULAR HGB CONC 34.2 g/dL (32.0-36.0); MEAN CORPUSCULAR VOLUME 82 fl (80-97); MONOCYTES % (AUTO) 3.3 % (3-13); PLATELET COUNT 285 10^3/uL (150-450); RED BLOOD COUNT 4.07 10^6/uL (3.72-5.28); RED CELL DISTRIBUTION WIDTH 18.1 % (11.5-14.0); SEGMENTED NEUTROPHILS % (AUTO) 66.1 % (42-78); TOTAL CELLS COUNTED % (AUTO) 100 %; WHITE BLOOD COUNT 6.5 10^3/uL (4.0-10.5)
[2020-09-05 13:40] LABS: ASPARTATE AMINO TRANSFERASE 35 U/L (14-36)
== END ==
LOC: OD 12:03
DX: M06.00 Rheumatoid arthritis without rheumatoid factor, unspecified site (principal); Z79.899 Other long term (current) drug therapy
CPT/HCPCS: 36415; 82565; 84450; 84460; 85025; 86480